=== PATIENT | female | born 1990 | race American Indian/Alaskan Native ===

== ENCOUNTER 2017-07-01 15:17 | Emergency (ER) | payer SELFPAY ==
[~2017-07-01] VITALS: Ht 175.3 cm; Wt 65.8 kg
[2017-07-01] MEDS ORDERED: ALBUTEROL SULF8.5 GM INH (15:27)
[2017-07-01] MEDS ORDERED: PREDNISONE20 MG ORAL (15:27)
[2017-07-01 15:31] VITALS: BP 116/52
[2017-07-01] MEDS ORDERED: LORazepam 1mg tab ORAL ONE (15:45)
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
[2017-07-01] MEDS ORDERED: ATIVAN0.5 MG ORAL (15:55)
[2017-07-01 16:25] VITALS: BP 116/52
== END 2017-07-01 16:25 | disposition home or self-care (01) ==
LOC: EMR 16:00
DX: R06.00 Dyspnea, unspecified (principal); F41.9 Anxiety disorder, unspecified; F60.81 Narcissistic personality disorder; R00.0 Tachycardia, unspecified; F43.10 Post-traumatic stress disorder, unspecified
CPT/HCPCS: 99283